=== PATIENT | male | born 1975 | race American Indian/Alaskan Native ===

== ENCOUNTER 2019-04-22 07:21 | Emergency (ER) | payer OTHER ==
[2019-04-22] MEDS ORDERED: DEXAMETHASONE 4 MG TAB PO ONE (09:20)
[2019-04-22] MEDS ORDERED: LISINOPRIL 10 MG TAB PO ONE (09:20)
[2019-04-22] MEDS ORDERED: BUTALB/ACETAMINOPHEN/CAFFEINE TAB PO ONE (09:20)
[2019-04-22] MEDS ORDERED: hydroCHLOROthiazide 25 MG TAB PO ONE (09:20)
--- NOTE | 2019-04-22 09:28 | Emergency Department Report ---
ED General Adult HPI - General Chief complaint: Headache Stated complaint: EXTREME HEADACHE 2DAYS Time Seen by Provider: 04/22/19 08:46 Source: patient Mode of arrival: Ambulatory Limitations: No Limitations - History of Present Illness Initial comments: 43-year-old -[place] male patient complains of left-sided headache 2 days. Patient rates his headache at a 5/10 in severity currently. He denies his headache being the worst headache of his life and states he has had some lower headaches in the past. He denies any dizziness, vision changes, numbness/tingling/weakness in his limbs, confusion, syncope, difficulty with ambulation, chest pain/shortness of breath, or drooping of the face. He states ibuprofen is not helping with his headache. Patient also reports he has been out of his blood pressure medications due to issues with insurance for the past 3 months. Patient states he was previously taking hydrochlorothiazide 25 mg and lisinopril 10 mg daily for years. History of VA/CVA. -: Sudden Severity scale (0 -10): 5 Quality: aching Improves with: none Worsens with: none Associated Symptoms: denies other symptoms - Related Data Previous Rx's Medication Instructions Recorded Last Taken Type hydroCHLOROthiazide [HCTZ] 25 mg PO QDAY 1 Days #30 tablet 04/22/19 Unknown Rx lisinopriL [Zestril TAB] 10 mg PO QDAY #30 tablet 04/22/19 Unknown Rx Allergies Allergy/AdvReac Type Severity Reaction Status Date / Time No Known Allergies Allergy Unverified 04/22/19 07:22 ED Review of Systems ROS: Stated complaint: EXTREME HEADACHE 2DAYS Other details as noted in HPI Comment: All other systems reviewed and negative Neurological: headache ED Past Medical Hx - Past Medical History Hx Hypertension: Yes - Surgical History Past Surgical History?: No - Social History Smoking Status: Never Smoker Substance Use Type: None - Medications Home Medications: Home Medications Medication Instructions Recorded Confirmed Last Taken Type hydroCHLOROthiazide [HCTZ] 25 mg PO QDAY 1 Days #30 tablet 04/22/19 Unknown Rx lisinopriL [Zestril TAB] 10 mg PO QDAY #30 tablet 04/22/19 Unknown Rx ED Physical Exam - General Limitations: No Limitations General appearance: alert, in no apparent distress - Head Head exam: Present: atraumatic, normocephalic - Eye Eye exam: Present: normal appearance, PERRL, EOMI. Absent: scleral icterus - Neck Neck exam: Present: normal inspection, full ROM. Absent: tenderness - Respiratory Respiratory exam: Present: normal lung sounds bilaterally. Absent: respiratory distress - Cardiovascular Cardiovascular Exam: Present: regular rate, normal rhythm. Absent: systolic murmur, diastolic murmur, rubs, gallop - Rectal Rectal exam: Present: deferred - Extremities Exam Extremities exam: Present: normal inspection - Back Exam Back exam: Present: normal inspection - Neurological Exam Neurological exam: Present: alert, oriented X3, CN II-XII intact, normal gait. Absent: motor sensory deficit - Expanded Neurological Exam Expanded Cerebellar function: Finger to Nose: Normal, Heel to Houser: Normal, Romberg: Normal Upper motor neuron: Pronator Drift: Normal Sensory exam: Upper Extremity Light Touch: Normal, Lower Extremity Light Touch: Normal Motor strength exam: RUE: 5, LUE: 5, RLE: 5, LLE: 5 - Psychiatric Psychiatric exam: Present: normal affect, normal mood - Skin Skin exam: Present: warm, dry, intact, normal color. Absent: rash ED Course Vital Signs 04/22/19 04/22/19 04/22/19 07:25 09:56 10:50 Temperature 98.3 F Pulse Rate 68 Respiratory 18 18 Rate Blood Pressure 159/92 Blood Pressure 151/86 [Left] O2 Sat by Pulse 99 Oximetry ED Medical Decision Making - Medical Decision Making 43-year-old -[place] male patient complains of left-sided headache 2 days. Patient denies any red flag symptoms. Neuro exam is normal. He denies worst headache of his life. He has also been out of his blood pressure medications for the past 3 months. Patient given blood pressure medications, Decadron, and Fioricet here in ED. She states headache has fully resolved. Patient given a primary care physician to follow up with within 3-5 days for further treatment and evaluation of his blood pressure. Discussed very strict return precautions in detail with patient verbalizes understanding. Critical care attestation.: If time is entered above; I have spent that time in minutes in the direct care of this critically ill patient, excluding procedure time. ED Disposition Clinical Impression: Headache syndrome, Uncontrolled hypertension Disposition: - TO HOME OR SELFCARE Is pt being admited?: No Condition: Stable Instructions: Acute Headache (ED), Hypertension (ED) Prescriptions: hydroCHLOROthiazide [HCTZ] 25 mg PO QDAY 1 Days #30 tablet lisinopriL [Zestril TAB] 10 mg PO QDAY #30 tablet Referrals: JURGEN PITTS MD [Primary Care Provider] - 3-5 Days [facility] [Provider Group] - 3-5 Days
[2019-04-22 11:33] VITALS: BP 150/86
== END 2019-04-22 11:32 | disposition home or self-care (01) ==
LOC: ED 07:21
DX: G44.89 Other headache syndrome (principal); I10 Essential (primary) hypertension; Z79.899 Other long term (current) drug therapy
CPT/HCPCS: 99282; J8540

== ENCOUNTER 2019-05-25 18:08 | Emergency (ER) | payer OTHER ==
[2019-05-25 18:40] VITALS: BP 132/80
--- NOTE | 2019-05-25 19:13 | Event Note ---
ED Screening Note Date of service: 05/25/19 Time: 19:09 ED Screening Note: 43 y o presents with fever, body aches, cough, This initial assessment/diagnostic orders/clinical plan/treatment(s) is/are subject to change based on patients health status, clinical progression and re- assessment by fellow clinical providers in the ED. Further treatment and workup at subsequent clinical providers discretion. Patient/guardian urged not to elope from the ED as their condition may be serious if not clinically assessed and managed. Initial orders include: cxr
--- NOTE | 2019-05-25 19:40 | XRay Report ---
CHEST 2 VIEWS INDICATION: cough. COMPARISON: None FINDINGS: Support devices: None. Heart: Within normal limits. Lungs: No acute air space or interstitial disease. Pleura: No significant pleural effusion. No pneumothorax. Additional findings: None. IMPRESSION: 1. No acute findings. Signer Name: Dmitriy Simpson MD Signed: 05/25/2019 7:36 PM Workstation Name: [id number]
[2019-05-25] MEDS ORDERED: IBUPROFEN 800 MG TAB PO ONE (23:48)
--- NOTE | 2019-05-26 00:04 | Emergency Department Report ---
- General Chief Complaint: Upper Respiratory Infection Stated Complaint: FLU/COLD SX Time Seen by Provider: 05/25/19 23:25 Source: patient Mode of arrival: Ambulatory Limitations: No Limitations - History of Present Illness Initial Comments: mr. Pérez is a 43 y o presents with fever, body aches, cough, sore throat , sinus pain and pressure x 2 days. He reports multiple sick coworkers. There is no sob , no n/v, no dizziness, or light headedness, pt is tolerating po intake. MD Complaint: cough, sore throat, rhinorrhea, nasal congestion, sinus pain Onset/Timin -: days(s) Severity: moderate Severity scale (0 -10): 4 Quality: aching Consistency: constant Improves With: nothing Worsens With: activity Context: sick contacts Associated Symptoms: chills, myalgias, rhinorrhea, nasal congestion, sore throat, cough, ear pain. denies: headache, chest pain, abdominal pain, vomiting, diarrhea Treatments Prior to Arrival: none - Related Data Previous Rx's Medication Instructions Recorded Last Taken Type hydroCHLOROthiazide [HCTZ] 25 mg PO QDAY 1 Days #30 tablet 04/22/19 Unknown Rx lisinopriL [Zestril TAB] 10 mg PO QDAY #30 tablet 04/22/19 Unknown Rx Amoxicillin/Potassium Clav 1 each PO BID 10 Days #20 tablet 05/26/19 Unknown Rx [Augmentin 875-125 Tablet] Ibuprofen [Motrin 800 MG tab] 800 mg PO Q8HR PRN #30 tablet 05/26/19 Unknown Rx predniSONE [Deltasone] 40 mg PO QDAY 5 Days #10 tab 05/26/19 Unknown Rx Allergies Allergy/AdvReac Type Severity Reaction Status Date / Time No Known Allergies Allergy Unverified 04/22/19 07:22 ED Review of Systems ROS: Stated complaint: FLU/COLD SX Other details as noted in HPI Constitutional: chills, malaise Eyes: denies: eye pain, eye discharge, vision change ENT: ear pain, throat pain, congestion Respiratory: cough. denies: shortness of breath, wheezing Cardiovascular: denies: chest pain, palpitations Endocrine: no symptoms reported Gastrointestinal: denies: abdominal pain, nausea, vomiting Genitourinary: denies: urgency, dysuria Musculoskeletal: denies: back pain, joint swelling, arthralgia Skin: denies: rash, lesions Neurological: denies: headache, weakness, paresthesias Psychiatric: denies: anxiety, depression Hematological/Lymphatic: denies: easy bleeding, easy bruising ED Past Medical Hx - Past Medical History Previous Medical History?: Yes Hx Hypertension: Yes - Surgical History Past Surgical History?: No - Social History Smoking Status: Never Smoker Substance Use Type: None - Medications Home Medications: Home Medications Medication Instructions Recorded Confirmed Last Taken Type hydroCHLOROthiazide [HCTZ] 25 mg PO QDAY 1 Days #30 tablet 04/22/19 Unknown Rx lisinopriL [Zestril TAB] 10 mg PO QDAY #30 tablet 04/22/19 Unknown Rx Amoxicillin/Potassium Clav 1 each PO BID 10 Days #20 tablet 05/26/19 Unknown Rx [Augmentin 875-125 Tablet] Ibuprofen [Motrin 800 MG tab] 800 mg PO Q8HR PRN #30 tablet 05/26/19 Unknown Rx predniSONE [Deltasone] 40 mg PO QDAY 5 Days #10 tab 05/26/19 Unknown Rx ED Physical Exam - General Limitations: No Limitations General appearance: alert, in no apparent distress - Head Head exam: Present: atraumatic, normocephalic - Eye Eye exam: Present: normal appearance, PERRL, EOMI - ENT ENT exam: Present: mucous membranes moist, other (bilat maxillary sinus tenderness, no swelling or erythema, yellow rhinorrhea ) - Expanded ENT Exam Expanded Ear exam: Present: normal external inspection TM/Canal exam: Erythema: Right TM, Left TM Mouth exam: Absent: trismus Throat exam: Positive: tonsillar erythema, tonsillomegaly, other (uvula midline no exudate no lesion). Negative: tonsillar exudate, R peritonsillar mass, L peritonsillar mass - Neck Neck exam: Present: normal inspection, full ROM. Absent: tenderness, lymphadenopathy, thyromegaly - Respiratory Respiratory exam: Present: normal lung sounds bilaterally. Absent: respiratory distress, wheezes, stridor, chest wall tenderness - Cardiovascular Cardiovascular Exam: Present: regular rate, normal rhythm, normal heart sounds. Absent: systolic murmur, diastolic murmur, rubs, gallop - GI/Abdominal GI/Abdominal exam: Present: soft, normal bowel sounds. Absent: distended, tenderness, guarding, rebound, rigid, bruit, hernia - Rectal Rectal exam: Present: deferred - Extremities Exam Extremities exam: Present: normal inspection, full ROM. Absent: tenderness - Back Exam Back exam: Present: normal inspection, full ROM. Absent: tenderness - Neurological Exam Neurological exam: Present: alert, oriented X3, CN II-XII intact, normal gait - Psychiatric Psychiatric exam: Present: normal affect, normal mood - Skin Skin exam: Present: warm, dry, intact, normal color. Absent: rash ED Course Vital Signs 05/25/19 05/25/19 18:38 19:10 Temperature 32.1 F L 98.7 F Pulse Rate 100 H Respiratory 16 Rate Blood Pressure 132/80 O2 Sat by Pulse 97 Oximetry ED Medical Decision Making - Radiology Data Radiology results: report reviewed, image reviewed Ordering Physician: MARIELA DÍAZ Date of Service: 05/25/19 Procedure(s): XR chest routine 2V Accession Number(s): [id number] cc: MARILEA DÍAZ Fluoro Time In Minutes: CHEST 2 VIEWS INDICATION: cough. COMPARISON: None FINDINGS: Support devices: None. Heart: Within normal limits. Lungs: No acute air space or interstitial disease. Pleura: No significant pleural effusion. No pneumothorax. Additional findings: None. IMPRESSION: 1. No acute findings. Signer Name: Dmitriy Simpson MD Signed: 05/25/2019 7:36 PM Workstation Name: [id number] Transcribed By: Dictated By: Dmitriy Simpson MD Electronically Authenticated By: Dmitriy Simpson MD Signed Date/Time: 05/25/191935 DD/ 35 - Medical Decision Making this is sinusitis, URI, plan: augmentin, ibuprofen, prednisone, follow up with pcp in 2-3 days, pt verbalized agreement and understanding of discharge plan. pt dc'd to home in stable condition at this time Critical care attestation.: If time is entered above; I have spent that time in minutes in the direct care of this critically ill patient, excluding procedure time. ED Disposition Clinical Impression: Sinusitis Qualifiers: Sinusitis location: maxillary Chronicity: acute Recurrence: non-recurrent Qualified Code(s): J01.00 - Acute maxillary sinusitis, unspecified URI (upper respiratory infection) Qualifiers: URI type: unspecified viral URI Qualified Code(s): J06.9 - Acute upper respiratory infection, unspecified Disposition: DC- TO HOME OR SELFCARE Is pt being admited?: No Does the pt Need Aspirin: No Condition: Stable Instructions: Sinusitis (ED), Acute Bacterial Rhinosinusitis (ED), Upper Respiratory Infection (ED) Prescriptions: Amoxicillin/Potassium Clav [Augmentin 875-125 Tablet] 1 each PO BID 10 Days #20 tablet predniSONE [Deltasone] 40 mg PO QDAY 5 Days #10 tab Ibuprofen [Motrin 800 MG tab] 800 mg PO Q8HR PRN #30 tablet PRN Reason: pain fever Referrals: SHELLY VEGA MD [Emergency Provider] - 3-5 Days Forms: Work/School Release Form(ED) Time of Disposition: 00:10
== END 2019-05-26 00:17 | disposition home or self-care (01) ==
LOC: ED 18:08
DX: J32.9 Chronic sinusitis, unspecified (principal); J06.9 Acute upper respiratory infection, unspecified; I10 Essential (primary) hypertension; Z79.2 Long term (current) use of antibiotics; Z79.899 Other long term (current) drug therapy
CPT/HCPCS: 71046